=== PATIENT | female | born 1995 | race Two or more races ===

== ENCOUNTER 2016-09-13 13:44 | Emergency (ER) | payer BC ==
--- NOTE | 2016-09-13 15:07 | EDM.PDOC ---
ED HPI GENERAL MEDICAL PROBLEM - General Stated Complaint: VIGINAL DISCHARGE/BLEEDING Time Seen by Provider: 09/13/16 14:15 Source of Information: Reports: Patient History Limitations: Reports: No limitations - History of Present Illness INITIAL COMMENTS - FREE TEXT/NARRATIVE: HISTORY AND PHYSICAL: History of present illness: The patient is a 21-year-old female presenting to the emergency department with very minimal vaginal bleeding and discharge that started last night. She is approximately 7 or 8 weeks with her third . She is and had a first trimester miscarriage about a year ago. She states this is about how her miscarriage started last time and she is very nervous and anxious. She has had minimal suprapubic cramping pain. She denies pain with urination. No fevers or chills. She has not established OB care here yet. Her other pregnancies were out of state. Review of systems: As per history of present illness and below otherwise all systems reviewed and negative. Past medical history: As per history of present illness and as reviewed below otherwise noncontributory. Surgical history: As per history of present illness and as reviewed below otherwise noncontributory. Social history: No reported history of drug or alcohol abuse. Family history: As per history of present illness and as reviewed below otherwise noncontributory. Physical exam: HEENT: Atraumatic, pupils reactive. Lungs: Clear to auscultation, breath sounds equal bilaterally, chest nontender. Heart: S1S2, regular, negative for clicks, rubs, or JVD. Abdomen: Soft, nondistended, nontender. Negative for masses or hepatosplenomegaly. Negative for costovertebral tenderness. Pelvis: Stable nontender. Genitourinary: Deferred. Rectal: Deferred. Extremities: Atraumatic, negative for cords or calf pain. Neurovascular unremarkable. Neuro: Awake, alert, oriented. Cranial nerves II through XII unremarkable. Cerebellum unremarkable. Motor and sensory unremarkable throughout. Exam nonfocal. Diagnostics: cbc, cmp, ua, 1st tri ultrasound, ABO/RH Impression: Threatened AB Plan: Ultrasound showed a live intrauterine . Patient's Rh was positive so no rhogam was given. The patient has not established care at this time but I did give her numbers for [facility] in the women's health office at our facility. She will call tomorrow to make an appointment for Saturday or Saturday for reevaluation. At this time I do not think he needs emergent testing of her hCG again in 48 hours. She was instructed to have pelvic rest and return to the ED for any significant bleeding or pain. Definitive disposition and diagnosis as appropriate pending reevaluation and review of above. Abdominal Pain Score (Numeric/FACES): 5 - Related Data Allergies Allergy/AdvReac Type Severity Reaction Status Date / Time No Known Allergies Allergy Verified 09/13/16 14:11 Home Meds: Home Meds . [No Known Home Meds] 09/13/16 [History] Social & Family History - Tobacco Use Smoking Status *Q: Never Smoker Second Hand Smoke Exposure: No - Caffeine Use Caffeine Use: Reports: Coffee - Recreational Drug Use Recreational Drug Use: No ED ROS GENERAL - Review of Systems Review Of Systems: ROS reveals no pertinent complaints other than HPI. ED EXAM, GENERAL - Physical Exam Exam: See Below (See HPI) Course - Vital Signs Last Recorded V/S: Last Vital Signs Temp 36.7 C 09/13/16 14:11 Pulse 99 09/13/16 14:11 Resp 18 09/13/16 14:11 BP 142/77 H 09/13/16 14:11 Pulse Ox 100 09/13/16 14:11 - Orders/Labs/Meds Labs: Laboratory Tests 09/13/16 09/13/16 09/13/16 Range/Units 14:46 14:46 14:46 WBC 12.55 H (4.0-11.0) K/uL RBC 4.75 (4.30-5.90) M/uL Hgb 13.6 (12.0-16.0) g/dL Hct 39.9 (36.0-46.0) % MCV 84.0 (80.0-98.0) fL MCH 28.6 (27.0-32.0) pg MCHC 34.1 (31.0-37.0) g/dL RDW Std Deviation 42.7 (28.0-62.0) fl RDW Coeff of Swathi 14 (11.0-15.0) % Plt Count 304 (150-400) K/uL MPV 9.60 (7.40-12.00) fL Neut % (Auto) 73.6 (48.0-80.0) % Lymph % (Auto) 17.8 (16.0-40.0) % [place] % (Auto) 4.7 (0.0-15.0) % Eos % (Auto) 3.7 (0.0-7.0) % Baso % (Auto) 0.2 (0.0-1.5) % Neut # (Auto) 9.2 H (1.4-5.7) K/uL Lymph # (Auto) 2.2 (0.6-2.4) K/uL [place] # (Auto) 0.6 (0.0-0.8) K/uL Eos # (Auto) 0.5 (0.0-0.7) K/uL Baso # (Auto) 0.0 (0.0-0.1) K/uL Nucleated RBC % 0.0 /100WBC Nucleated RBCs # 0 K/uL Sodium 138 (136-146) mmol/L Potassium 3.8 (3.5-5.1) mmol/L Chloride 105 (98-110) mmol/L Carbon Dioxide 20 L (21-31) mmol/L BUN 10 (6.0-23.0) mg/dL Creatinine 0.8 (0.6-1.5) mg/dL Est Cr Clr Drug Dosing TNP Estimated GFR (MDRD) > 60.0 ml/min Glucose 86 (60-110) mg/dL Calcium 9.4 (8.8-10.8) mg/dL Total Bilirubin 0.5 (0.1-1.5) mg/dL AST 17 (5-40) IU/L ALT 15 (8-54) IU/L Alkaline Phosphatase 52 (40-150) Total Protein 8.1 H (6.0-8.0) g/dL Albumin 4.6 (3.5-5.0) g/dL Globulin 3.5 (2.0-3.5) g/dL Albumin/Globulin Ratio 1.3 (1.3-2.8) HCG, Quant 73663.6 mIU/mL Urine Color Urine Appearance Urine pH (5.0-8.0) Ur Specific [place] (1.001-1.035) Urine Protein (NEGATIVE) mg/dL Urine Glucose (UA) (NEGATIVE) mg/dL Urine Ketones (NEGATIVE) mg/dL Urine Occult Blood (NEGATIVE) Urine Nitrite (NEGATIVE) Urine Bilirubin (NEGATIVE) Urine Urobilinogen (<2.0) EU/dL Ur Leukocyte Esterase (NEGATIVE) Urine RBC (0-2/HPF) Urine WBC (0-5/HPF) Ur Epithelial Cells (NONE-FEW) Urine Bacteria (NEGATIVE) Blood Type O POSITIVE 09/13/16 Range/Units 14:50 WBC (4.0-11.0) K/uL RBC (4.30-5.90) M/uL Hgb (12.0-16.0) g/dL Hct (36.0-46.0) % MCV (80.0-98.0) fL MCH (27.0-32.0) pg MCHC (31.0-37.0) g/dL RDW Std Deviation (28.0-62.0) fl RDW Coeff of Swathi (11.0-15.0) % Plt Count (150-400) K/uL MPV (7.40-12.00) fL Neut % (Auto) (48.0-80.0) % Lymph % (Auto) (16.0-40.0) % [place] % (Auto) (0.0-15.0) % Eos % (Auto) (0.0-7.0) % Baso % (Auto) (0.0-1.5) % Neut # (Auto) (1.4-5.7) K/uL Lymph # (Auto) (0.6-2.4) K/uL [place] # (Auto) (0.0-0.8) K/uL Eos # (Auto) (0.0-0.7) K/uL Baso # (Auto) (0.0-0.1) K/uL Nucleated RBC % /100WBC Nucleated RBCs # K/uL Sodium (136-146) mmol/L Potassium (3.5-5.1) mmol/L Chloride (98-110) mmol/L Carbon Dioxide (21-31) mmol/L BUN (6.0-23.0) mg/dL Creatinine (0.6-1.5) mg/dL Est Cr Clr Drug Dosing Estimated GFR (MDRD) ml/min Glucose (60-110) mg/dL Calcium (8.8-10.8) mg/dL Total Bilirubin (0.1-1.5) mg/dL AST (5-40) IU/L ALT (8-54) IU/L Alkaline Phosphatase (40-150) Total Protein (6.0-8.0) g/dL Albumin (3.5-5.0) g/dL Globulin (2.0-3.5) g/dL Albumin/Globulin Ratio (1.3-2.8) HCG, Quant mIU/mL Urine Color YELLOW Urine Appearance SLT CLOUDY Urine pH 6.5 (5.0-8.0) Ur Specific [place] <= 1.005 (1.001-1.035) Urine Protein NEGATIVE (NEGATIVE) mg/dL Urine Glucose (UA) NEGATIVE (NEGATIVE) mg/dL Urine Ketones NEGATIVE (NEGATIVE) mg/dL Urine Occult Blood LARGE H (NEGATIVE) Urine Nitrite NEGATIVE (NEGATIVE) Urine Bilirubin NEGATIVE (NEGATIVE) Urine Urobilinogen 0.2 (<2.0) EU/dL Ur Leukocyte Esterase SMALL (NEGATIVE) Urine RBC 0-3 (0-2/HPF) Urine WBC 3-5 (0-5/HPF) Ur Epithelial Cells MODERATE (NONE-FEW) Urine Bacteria FEW (NEGATIVE) Blood Type Departure - Departure Time of Disposition: 16:05 Disposition: Home, Self-Care 01 Condition: good Clinical Impression: Threatened Referrals: PCP,None [Primary Care Provider] - Additional Instructions: The following information is given to patients seen in the emergency department who are being discharged to home. This information is to outline your options for follow-up care. We provide all patients seen in our emergency department with a follow-up referral. The need for follow-up, as well as the timing and circumstances, are variable depending upon the specifics of your emergency department visit. If you don't have a primary care physician on staff, we will provide you with a referral. We always advise you to contact your personal physician following an emergency department visit to inform them of the circumstance of the visit and for follow-up with them and/or the need for any referrals to a consulting specialist. The emergency department will also refer you to a specialist when appropriate. This referral assures that you have the opportunity for follow-up care with a specialist. All of these measure are taken in an effort to provide you with optimal care, which includes your follow-up. Under all circumstances we always encourage you to contact your private physician who remains a resource for coordinating your care. When calling for follow-up care, please make the office aware that this follow-up is from your recent emergency room visit. If for any reason you are refused follow-up, please contact the [facility] Emergency Department at and asked to speak to the emergency department charge nurse. [facility] [address] [place] [id number] [facility] Primary Care - Women's Health [address] [place] [id number] Please avoid any tampons douching or intercourse until you're cleared by her doctor. Return to the ED for any significant bleeding as we discussed or any severe change in your symptoms.
[2016-09-13 15:20] LABS: CHLORIDE,CL 105 mmol/L (98-110); SODIUM,NA 138 mmol/L (136-146)
--- NOTE | 2016-09-13 15:37 | US ---
EXAMINATION: Transvaginal pelvic ultrasound HISTORY: Bleeding COMPARISON: None TECHNIQUE: Grayscale, color Doppler and spectral Doppler images obtained transvaginally. FINDINGS: The uterus appears normal in size and contour. There is a gestational sac noted within the fundus of the uterus. A yolk sac and pole is noted. The heart rate is 138 bpm. The mean sac diameter measures 2.1 cm and the crown-rump length measures 0.9 cm. This gives an estimated ges tational age at 6 weeks and 6 days with an estimated date of delivery at 05/03/2017. Both the left and right ovaries are normal in size, contour and echogenicity demonstrating normal co makayla and spectral Doppler flow. Left ovary is however not well characterized. No adnexal masses. IMPRESSION: 1. Single live intrauterine .
== END 2016-09-13 16:56 | disposition home or self-care (01) ==
LOC: MW.ED 13:44 → EDBD 13:44 → MW.ED 16:56
DX: O20.0 Threatened abortion (principal)
CPT/HCPCS: 36415; 76801; 76801-26; 80053; 81001; 84702; 85025; 86900; 86901; 99283; 99284-25

== ENCOUNTER 2017-04-17 11:39 | Inpatient (IN) | payer OTHER ==
[2017-04-17 12:57] LABS: CHLORIDE,CL 112 mmol/L (98-110); SODIUM,NA 138 mmol/L (136-146)
[2017-04-17] MEDS ORDERED: Sodium Chloride 0.9% 10 ML Syringe FLUSH PRN ×2 (15:27→20:31)
[2017-04-17] MEDS ORDERED: Sodium Chloride 0.9% 2.5 ML Syringe FLUSH PRN ×2 (15:27→20:31)
[2017-04-17] MEDS ORDERED: Oxytocin/0.9 % Sodium Chloride 30 UNIT/500 ML BAG IV SCH (15:30)
[2017-04-17] MEDS ORDERED: Citric Acid/Sodium Citrate Solution 30 ML Cup PO SCH (15:30)
[2017-04-17] MEDS: Lactated Ringers 1,000 ML IV SCH ×2 (15:55→16:28)
[2017-04-17] MEDS ORDERED: Morphine PF 10 MG/10 ML SDV IV ONE (15:59)
[2017-04-17] MEDS ORDERED: Ondansetron 4 MG/2 ML SDV IVPUSH ONE (15:59)
[2017-04-17] MEDS ORDERED: ePHEDrine 50 MG/ML SDV IV ONE (15:59)
[2017-04-17] MEDS ORDERED: Octyl 2-Cyanoacrylate 1 Tube TOP ONE (15:59)
[2017-04-17] MEDS ORDERED: Oxytocin 10 Units/1 ML SDV IV ONE (15:59)
--- NOTE | 2017-04-17 16:15 | PCM.PREANE ---
Preanesthetic Assessment - Anesthesia/Transfusion/Family Hx Anesthesia History: Prior Anesthesia Without Reaction Family History of Anesthesia Reaction: No Intubation History: Unknown - Review of Systems General: No Symptoms Pulmonary: No Symptoms Cardiovascular: No Symptoms Gastrointestinal: No Symptoms Neurological: No Symptoms Other: Reports: None - Physical Assessment ASA Class: 2E Mental Status: Alert & Oriented x3 Airway Class: Mallampati = 2 Dentition: Reports: Normal Dentition Thyro-Mental Finger Breadths: 3 Mouth Opening Finger Breadths: 3 ROM/Head Extension: Full Lungs: Clear to Auscultation, Normal Respiratory Effort Cardiovascular: Regular Rate, Regular Rhythm - Allergies Allergies/Adverse Reactions: Allergies Allergy/AdvReac Type Severity Reaction Status Date / Time No Known Allergies Allergy Verified 09/13/16 14:11 - Blood Blood Available: No - Anesthesia Plan Pre-Op Medication Ordered: None - Acknowledgements Anesthesia Type Planned: Spinal Pt an Appropriate Candidate for the Planned Anesthesia: Yes Alternatives and Risks of Anesthesia Discussed w Pt/Guardian: Yes Pt/Guardian Understands and Agrees with Anesthesia Plan: Yes PreAnesthesia Questionnaire - Past Surgical History Female Surgical History: Reports: Section (emergency C/S due to eclampsia with temporaty loss of vision in one eye) - SUBSTANCE USE Smoking Status *Q: Never Smoker Second Hand Smoke Exposure: No Recreational Drug Use History: No - HOME MEDS Home Medications: Home Meds . [No Known Home Meds] 09/13/16 [History] - CURRENT (IN HOUSE) MEDS Current Meds: Current Medications Lactated Ringer's (Ringers, Lactated) 1,000 mls @ 125 mls/hr IV ASDIRECTED RIKY Sodium Chloride (Saline Flush) 10 ml FLUSH ASDIRECTED PRN PRN Reason: Keep Vein Open Sodium Chloride (Saline Flush) 2.5 ml FLUSH ASDIRECTED PRN PRN Reason: Keep Vein Open Discontinued Medications Morphine Sulfate (Duramorph Pf) Confirm Administered Dose 10 mg .ROUTE .STK-MED ONE Stop: 04/17/17 16:00 Ondansetron HCl (Zofran) Confirm Administered Dose 4 mg .ROUTE .STK-MED ONE Stop: 04/17/17 16:00 Oxytocin (Pitocin) Confirm Administered Dose 20 unit .ROUTE .STK-MED ONE Stop: 04/17/17 16:00
[2017-04-17] MEDS ORDERED: fentaNYL 100 MCG/2 ML SDV IVPUSH PRN (17:30)
[2017-04-17] MEDS ORDERED: Ibuprofen 800 MG Tab PO PRN (17:34)
[2017-04-17] MEDS ORDERED: Bisacodyl 10 MG Supp RECTAL PRN (17:34)
[2017-04-17] MEDS ORDERED: Acetaminophen/oxyCODONE 325-5 MG Tab PO PRN ×2 (17:34)
[2017-04-17] MEDS ORDERED: diphenhydrAMINE 50 MG/ML SDV IVPUSH PRN ×2 (17:34→20:31)
[2017-04-17] MEDS ORDERED: Ondansetron 4 MG/2 ML SDV IV PRN (17:34)
[2017-04-17] MEDS ORDERED: Lanolin 100% Cream 7 GM Tube TOP PRN (17:34)
--- NOTE | 2017-04-17 17:39 | PCM.OPNOTE ---
- General Post-Op/Procedure Note Date of Surgery/Procedure: 04/17/17 Operative Procedure(s): Repeat C/section Pre Op Diagnosis: PIH [id number] wks previous C/Section Post-Op Diagnosis: Same Anesthesia Technique: Spinal Primary Surgeon: Alberto Prince Snack Bar Attendant: kristi DIAMOND in mLs: 700 Complications: accedental intery to the bladder Condition: Good
[2017-04-17] MEDS ORDERED: Lactated Ringers 1,000 ML IV SCH ×2 (17:45→20:45)
[2017-04-17] MEDS ORDERED: Ketorolac 30 MG/ML SDV IVPUSH SCH (17:45)
--- NOTE | 2017-04-17 18:37 | PCM.POSTAN ---
POST ANESTHESIA ASSESSMENT - MENTAL STATUS Mental Status: Alert, Oriented - RESPIRATORY Respiratory Status: Respiratory Rate WNL, Airway Patent, O2 Saturation Stable - CARDIOVASCULAR CV Status: Pulse Rate WNL, Blood Pressure Stable - GASTROINTESTINAL GI Status: No Symptoms - POST OP HYDRATION Hydration Status: Adequate & Stable
[2017-04-17] MEDS ORDERED: Naloxone 0.4 MG/ML Syringe IVPUSH PRN (20:31)
[2017-04-17] MEDS ORDERED: Nalbuphine 10 MG/1 ML Vial IVPUSH PRN (20:31)
--- NOTE | 2017-04-17 20:41 | PCM.SN ---
- Free Text/Narrative Note: Please see patients other medical record for all anesthesia related charting.
--- NOTE | 2017-04-17 21:05 | OR ---
SURGEON: Alberto Prince MD DATE OF PROCEDURE: PREOPERATIVE DIAGNOSES: 1. Intrauterine , 37 weeks plus 3. 2. -induced hypertension. 3. Previous section. POSTOPERATIVE DIAGNOSES: 1. Intrauterine , 37 weeks plus 3. 2. -induced hypertension. 3. Previous section. OPERATION PERFORMED: Repeat low-transverse section. FRAUD INVESTIGATOR: Nalini Mohan CNM. ANESTHESIA: Spinal, Jameel Dallas and Dr. Juares. ESTIMATED BLOOD LOSS: 700 mL. COMPLICATIONS: Accidental entry to the bladder during the dissection of the lower uterine segment due to dense adhesion between her bladder and the lower uterine segment and the anterior abdominal wall from her previous section. INDICATIONS: This patient is 37 plus 3. She has had previous section. She was scheduled for elective section at 39 weeks. However, she presented today to Labor and Delivery with elevated blood pressure. Her blood pressure is ranging between 170/110 and 160/105. The patient was sent to Labor and Delivery and monitored for a while. Her blood pressure has continued to be up, and there was swelling of the leg and abdominal edema. A decision was made to repeat the section because of the PIH situation. The patient previously had section with her first child with PIH problem too. PROCEDURE IN DETAIL: The patient was brought to the OR, properly identified, and after adequate level of general anesthesia, the patient was prepped and draped in a sterile fashion as usual. A low-transverse Pfannenstiel skin incision through the old scar done. Brian's fascia and rectus fascia were opened in the direction of the incision. The 2 recti muscles were . Peritoneal cavity was entered. There was a dense adhesion between the bladder, anterior abdominal wall, and lower uterine segment. During the dissection of the bladder from the lower uterine segment, accidental entry happened to the bladder. It was about 1.5 cm, and it was recognized immediately and repaired after delivering the baby. Then, a low transverse incision in the lower uterine segment was done, extended manually with hand. The fetus was delivered. It was in the vertex position. The fetus cried immediately. score reported to be 8 and 9. The weight was not available. The placenta was delivered spontaneous, complete, and intact without any problem. A repair of the lower uterine segment was done with 2-0 Vicryl continuous interlocking in 2 layers and at this time, attention was paid to the hole in the bladder, and the edge of the bladder hole was identified with a Hilton and using 3-0 Vicryl continuous interlocking, the bladder hole was repaired in 3 layers, 2 in the muscle of the bladder and the last one in the peritoneum. Once this was done, then re-peritonealization of the lower uterine segment was done with 2-0 Vicryl continuous, and then the peritoneal cavity evacuated completely from all blood and blood clot and closed with 3-0 Vicryl continuous. The rectus fascia was closed with #1 PDS double-strand continuous and the Brian's fascia with 3-0 Vicryl continuous. The skin was closed with 3- 0 Vicryl utilizing Kingsley needle and Dermabond. Instrument and sponge count was correct. The patient tolerated the procedure well and went to the recovery room in stable general condition. JESSIKA LONG /[id number]
[2017-04-17] MEDS: Docusate Sodium 100 MG Cap PO SCH (21:18)
[2017-04-17] MEDS: Ketorolac 30 MG/ML SDV IVPUSH SCH (21:19)
[2017-04-18] MEDS ORDERED: Furosemide 20 MG/2 ML VIAL IVPUSH ONE (02:53)
[2017-04-18] MEDS: Ketorolac 30 MG/ML SDV IVPUSH SCH ×4 (03:02→21:07)
--- NOTE | 2017-04-18 08:44 | PCM.PNPP ---
- General Info Date of Service: 04/18/17 Functional Status: Reports: Pain Controlled, Tolerating Diet, Urinating (spivey in), Incentive Spirometry - Review of Systems General: Reports: No Symptoms HEENT: Reports: No Symptoms Pulmonary: Reports: No Symptoms Cardiovascular: Reports: No Symptoms Gastrointestinal: Reports: No Symptoms Genitourinary: Reports: No Symptoms Musculoskeletal: Reports: No Symptoms Skin: Reports: No Symptoms Neurological: Reports: No Symptoms Psychiatric: Reports: No Symptoms - General Info Date of Service: 04/18/17 - Patient Data Vital Signs - Most Recent: Last Vital Signs Temp 36.8 C 04/17/17 18:45 Pulse 83 04/18/17 06:17 Resp 16 04/18/17 06:17 BP 133/85 04/18/17 04:04 Pulse Ox 94 L 04/18/17 06:17 Weight - Most Recent: 83.915 kg I&O - Last 24 Hours: Intake & Output 04/17/17 04/18/17 04/18/17 22:59 06:59 14:59 Intake Total 2933 Output Total 1880 Balance 1053 Lab Results - Last 24 Hours: Laboratory Results - last 24 hr 04/17/17 04/17/17 04/17/17 Range/Units 11:50 11:50 12:10 WBC 9.40 (4.0-11.0) K/uL RBC 4.40 (4.30-5.90) M/uL Hgb 12.4 (12.0-16.0) g/dL Hct 37.8 (36.0-46.0) % MCV 85.9 (80.0-98.0) fL MCH 28.2 (27.0-32.0) pg MCHC 32.8 (31.0-37.0) g/dL RDW Std Deviation 50.4 (28.0-62.0) fl RDW Coeff of Swathi 16 H (11.0-15.0) % Plt Count 227 (150-400) K/uL MPV 11.10 (7.40-12.00) fL Neut % (Auto) 72.0 (48.0-80.0) % Lymph % (Auto) 18.8 (16.0-40.0) % Mcduffie % (Auto) 6.8 (0.0-15.0) % Eos % (Auto) 2.3 (0.0-7.0) % Baso % (Auto) 0.1 (0.0-1.5) % Neut # (Auto) 6.8 H (1.4-5.7) K/uL Lymph # (Auto) 1.8 (0.6-2.4) K/uL Mcduffie # (Auto) 0.6 (0.0-0.8) K/uL Eos # (Auto) 0.2 (0.0-0.7) K/uL Baso # (Auto) 0.0 (0.0-0.1) K/uL Nucleated RBC % 0.0 /100WBC Nucleated RBCs # 0 K/uL Sodium (136-146) mmol/L Potassium (3.5-5.1) mmol/L Chloride (98-110) mmol/L Carbon Dioxide (21-31) mmol/L BUN (6.0-23.0) mg/dL Creatinine (0.6-1.5) mg/dL Est Cr Clr Drug Dosing mL/min Estimated GFR (MDRD) ml/min Glucose (60-110) mg/dL Uric Acid (2.1-6.2) mg/dL Calcium (8.8-10.8) mg/dL Total Bilirubin (0.1-1.5) mg/dL AST (5-40) IU/L ALT (8-54) IU/L Alkaline Phosphatase (40-150) Total Protein (6.0-8.0) g/dL Albumin (3.5-5.0) g/dL Globulin (2.0-3.5) g/dL Albumin/Globulin Ratio (1.3-2.8) Urine Color YELLOW Urine Appearance SLT CLOUDY Urine pH 6.5 (5.0-8.0) Ur Specific [place] 1.015 (1.001-1.035) Urine Protein 30 (NEGATIVE) mg/dL Urine Glucose (UA) NEGATIVE (NEGATIVE) mg/dL Urine Ketones NEGATIVE (NEGATIVE) mg/dL Urine Occult Blood TRACE-INTACT (NEGATIVE) Urine Nitrite NEGATIVE (NEGATIVE) Urine Bilirubin NEGATIVE (NEGATIVE) Urine Urobilinogen 0.2 (<2.0) EU/dL Ur Leukocyte Esterase NEGATIVE (NEGATIVE) Urine RBC 0-1 (0-2/HPF) Urine WBC 0-2 (0-5/HPF) Ur Epithelial Cells MANY (NONE-FEW) Urine Bacteria FEW (NEGATIVE) Ur Random Creatinine 122.8 mg/dL U Random Total Protein 97.2 mg/dL Protein/Creatinin Ratio 0.8 Blood Type Antibody Screen 04/17/17 04/17/17 04/18/17 Range/Units 12:10 12:10 05:19 WBC (4.0-11.0) K/uL RBC (4.30-5.90) M/uL Hgb 10.3 L (12.0-16.0) g/dL Hct 31.4 L (36.0-46.0) % MCV (80.0-98.0) fL MCH (27.0-32.0) pg MCHC (31.0-37.0) g/dL RDW Std Deviation (28.0-62.0) fl RDW Coeff of Swathi (11.0-15.0) % Plt Count (150-400) K/uL MPV (7.40-12.00) fL Neut % (Auto) (48.0-80.0) % Lymph % (Auto) (16.0-40.0) % Mcduffie % (Auto) (0.0-15.0) % Eos % (Auto) (0.0-7.0) % Baso % (Auto) (0.0-1.5) % Neut # (Auto) (1.4-5.7) K/uL Lymph # (Auto) (0.6-2.4) K/uL Mcduffie # (Auto) (0.0-0.8) K/uL Eos # (Auto) (0.0-0.7) K/uL Baso # (Auto) (0.0-0.1) K/uL Nucleated RBC % /100WBC Nucleated RBCs # K/uL Sodium 138 (136-146) mmol/L Potassium 3.9 (3.5-5.1) mmol/L Chloride 112 H (98-110) mmol/L Carbon Dioxide 16 L (21-31) mmol/L BUN 8 (6.0-23.0) mg/dL Creatinine 0.7 (0.6-1.5) mg/dL Est Cr Clr Drug Dosing 134.01 mL/min Estimated GFR (MDRD) > 60.0 ml/min Glucose 98 (60-110) mg/dL Uric Acid 7.6 H (2.1-6.2) mg/dL Calcium 9.0 (8.8-10.8) mg/dL Total Bilirubin 0.3 (0.1-1.5) mg/dL AST 24 (5-40) IU/L ALT 15 (8-54) IU/L Alkaline Phosphatase 175 H (40-150) Total Protein 6.1 (6.0-8.0) g/dL Albumin 3.3 L (3.5-5.0) g/dL Globulin 2.8 (2.0-3.5) g/dL Albumin/Globulin Ratio 1.2 L (1.3-2.8) Urine Color Urine Appearance Urine pH (5.0-8.0) Ur Specific [place] (1.001-1.035) Urine Protein (NEGATIVE) mg/dL Urine Glucose (UA) (NEGATIVE) mg/dL Urine Ketones (NEGATIVE) mg/dL Urine Occult Blood (NEGATIVE) Urine Nitrite (NEGATIVE) Urine Bilirubin (NEGATIVE) Urine Urobilinogen (<2.0) EU/dL Ur Leukocyte Esterase (NEGATIVE) Urine RBC (0-2/HPF) Urine WBC (0-5/HPF) Ur Epithelial Cells (NONE-FEW) Urine Bacteria (NEGATIVE) Ur Random Creatinine mg/dL U Random Total Protein mg/dL Protein/Creatinin Ratio Blood Type O POSITIVE Antibody Screen NEGATIVE Med Orders - Current: Current Medications Bisacodyl (Dulcolax) 10 mg RECTAL .ONCE PRN PRN Reason: Constipation Citric Acid/Sodium Citrate (Bicitra Solution) 30 ml PO .ONCE [facility] Last Admin: 04/17/17 16:34 Dose: 30 ml Diphenhydramine HCl (Benadryl) 25 mg IVPUSH Q6H PRN PRN Reason: Itching or Nausea Diphenhydramine HCl (Benadryl) 25 mg IVPUSH Q4H PRN PRN Reason: Itching Stop: 04/18/17 20:32 Docusate Sodium (Colace) 100 mg PO BID [facility] Last Admin: 04/17/17 21:18 Dose: 100 mg Emollient Ointment (Lansinoh Hpa) 0 gm TOP ASDIRECTED PRN PRN Reason: Sore Nipples Fentanyl (Sublimaze) 50 mcg IVPUSH Q45M PRN PRN Reason: Pain (severe 7-10) Stop: 04/18/17 17:30 Oxytocin/Sodium Chloride (Oxytocin 30 Unit/500 Ml-Ns) 30 unit in 500 mls @ 250 mls/hr IV TITRATE [facility] Lactated Ringer's (Ringers, Lactated) 1,000 mls @ 500 mls/hr IV .BOLUS [facility] Last Admin: 04/17/17 16:28 Dose: 500 mls/hr Lactated Ringer's (Ringers, Lactated) 1,000 mls @ 125 mls/hr IV ASDIRECTED [facility] Last Admin: 04/18/17 01:51 Dose: 125 mls/hr Lactated Ringer's (Ringers, Lactated) 1,000 mls @ 125 mls/hr IV ASDIRECTED [facility] Ibuprofen (Motrin) 800 mg PO Q8H PRN PRN Reason: mild pain or fever Ketorolac Tromethamine (Toradol) 30 mg IVPUSH Q6H [facility] Stop: 04/18/17 21:01 Last Admin: 04/18/17 03:02 Dose: 30 mg Nalbuphine HCl (Nubain) 5 mg IVPUSH Q3H PRN PRN Reason: Pruritis Stop: 04/18/17 20:32 Naloxone HCl (Narcan) 0.1 mg IVPUSH ONETIME PRN PRN Reason: Respiratory Depression Stop: 04/18/17 20:32 Ondansetron HCl (Zofran) 4 mg IV Q4H PRN PRN Reason: Nausea/Vomiting Oxycodone/Acetaminophen (Percocet 325-5 Mg) 1 tab PO Q4H PRN PRN Reason: Pain (moderate 4-6) Oxycodone/Acetaminophen (Percocet 325-5 Mg) 2 tab PO Q4H PRN PRN Reason: Pain (moderate 4-6) Sodium Chloride (Saline Flush) 10 ml FLUSH ASDIRECTED PRN PRN Reason: Keep Vein Open Sodium Chloride (Saline Flush) 2.5 ml FLUSH ASDIRECTED PRN PRN Reason: Keep Vein Open Sodium Chloride (Saline Flush) 10 ml FLUSH ASDIRECTED PRN PRN Reason: Keep Vein Open Sodium Chloride (Saline Flush) 2.5 ml FLUSH ASDIRECTED PRN PRN Reason: Keep Vein Open Discontinued Medications Furosemide (Lasix) 20 mg IVPUSH ONETIME ONE Stop: 04/18/17 02:54 Last Admin: 04/18/17 03:20 Dose: 20 mg Ketorolac Tromethamine (Toradol) 30 mg IVPUSH Q6H [facility] Stop: 04/18/17 17:46 - Interaction Infant Disposition, : [place] in Room with Family Interaction: Holding Infant Feeding: Breastfed ; Nursed Well Support Person: - Recovery Exam Fundal Tone: Firm Fundal Level: 2 Fingerbreadths Below Umbilicus Fundal Placement: Midline Lochia Amount: Small Lochia Color: Rubra/Red Episiotomy/Laceration: None - Exam General: Alert, Oriented, Cooperative, No Acute Distress Lungs: Normal Respiratory Effort GI/Abdominal Exam: Soft, Non-Tender Extremities: Normal Range of Motion, Non-Tender, No Pedal Edema, Normal Capillary Refill Skin: Warm, Dry, Intact Wound/Incisions: Healing Well, Dressing Dry and Intact Neurological: No New Focal Deficit, Normal Speech, Normal Tone Psy/Mental Status: Alert, Normal Affect, Normal Mood - Problem List & Annotations (1) delivery delivered SNOMED Code(s): 713585916 Code(s): O82 - ENCOUNTER FOR DELIVERY WITHOUT INDICATION Status: Acute Priority: High Current Visit: Yes - Problem List Review Problem List Initiated/Reviewed/Updated: Yes - My Orders Last 24 Hours: My Active Orders 04/17/17 11:28 CULTURE GROUP B STREP [RM] Routine - Assessment Assessment:: A: VSS, AF, Incision dressing dry and intact. Spivey cath in urine clear, Stable - Plan Plan:: P: continue pp plan of care. Dr Prince updated on pt status
[2017-04-18] MEDS: Docusate Sodium 100 MG Cap PO SCH ×2 (09:30→22:08)
[2017-04-18] MEDS: Lactated Ringers 1,000 ML IV SCH (09:36)
[2017-04-19] MEDS: Docusate Sodium 100 MG Cap PO SCH (08:14)
--- NOTE | 2017-04-19 08:27 | PCM.DCSUM1 ---
Discharge Summary - Hospital Course Free Text/Narrative:: Discharge home with infant, Follow up in 1 weeks to have spivey catheter removed and incision checked. - Discharge Data Discharge Date: 04/19/17 Discharge Disposition: Home, Self-Care 01 Condition: Good - Discharge Diagnosis/Problem(s) (1) delivery delivered SNOMED Code(s): 265219221 ICD Code: O82 - ENCOUNTER FOR DELIVERY WITHOUT INDICATION Status: Acute Priority: High Current Visit: Yes - Patient Summary/Data Operative Procedure(s) Performed: Repeat C/section - Patient Instructions Diet: Usual Diet as Tolerated Activity: As Tolerated, No Lifting Over 10 Pounds, No Strenuous Activities, Rest and Relax Today Driving: Do Not Drive Showering/Bathing: May Shower, No Tub Bathing/Swimming (for one week) Wound/Incision Care: Keep Operative Site/Wound Site Clean and Dry Notify Provider of: Fever, Increased Pain, Swelling and Redness, Drainage, Nausea and/or Vomiting Other/Special Instructions: Discharge home with infant, Follow up in 1 weeks to have spivey catheter removed and incision checked. - Discharge Plan Home Medications: Home Meds . [No Known Home Meds] 09/13/16 [History] Referrals: [facility] [Outside] Nalini Mohan CNM [Primary Care Provider] - (1 week- April 26 @ 8:30am w/ Nalini Mohan 6 week- May 30 @ 10:45am w/ Nalini Mohan ) - General Info Date of Service: 04/19/17 Functional Status: Reports: Pain Controlled, Tolerating Diet, Ambulating, Incentive Spirometry, Other (spivey catheter will remain in for one week) - Review of Systems General: Reports: No Symptoms HEENT: Reports: No Symptoms Pulmonary: Reports: No Symptoms Cardiovascular: Reports: No Symptoms Gastrointestinal: Reports: No Symptoms Genitourinary: Reports: No Symptoms Musculoskeletal: Reports: No Symptoms Skin: Reports: No Symptoms Neurological: Reports: No Symptoms Psychiatric: Reports: No Symptoms - Patient Data Vitals - Most Recent: Last Vital Signs Temp 36.8 C 04/18/17 23:58 Pulse 83 04/18/17 23:58 Resp 14 04/18/17 23:58 BP 136/78 04/18/17 23:58 Pulse Ox 94 L 04/18/17 23:58 Weight - Most Recent: 83.915 kg I&O - Last 24 hours: Intake & Output 04/18/17 04/19/17 04/19/17 22:59 06:59 14:59 Output Total 3400 Balance -3400 Med Orders - Current: Current Medications Bisacodyl (Dulcolax) 10 mg RECTAL .ONCE PRN PRN Reason: Constipation Citric Acid/Sodium Citrate (Bicitra Solution) 30 ml PO .ONCE [facility] Last Admin: 04/17/17 16:34 Dose: 30 ml Diphenhydramine HCl (Benadryl) 25 mg IVPUSH Q6H PRN PRN Reason: Itching or Nausea Docusate Sodium (Colace) 100 mg PO BID [facility] Last Admin: 04/19/17 08:14 Dose: 100 mg Emollient Ointment (Lansinoh Hpa) 0 gm TOP ASDIRECTED PRN PRN Reason: Sore Nipples Oxytocin/Sodium Chloride (Oxytocin 30 Unit/500 Ml-Ns) 30 unit in 500 mls @ 250 mls/hr IV TITRATE [facility] Lactated Ringer's (Ringers, Lactated) 1,000 mls @ 500 mls/hr IV .BOLUS [facility] Last Infusion: 04/17/17 18:28 Dose: Infused Lactated Ringer's (Ringers, Lactated) 1,000 mls @ 125 mls/hr IV ASDIRECTED [facility] Last Admin: 04/18/17 01:51 Dose: 125 mls/hr Lactated Ringer's (Ringers, Lactated) 1,000 mls @ 125 mls/hr IV ASDIRECTED [facility] Last Admin: 04/18/17 09:37 Dose: 125 mls/hr Ibuprofen (Motrin) 800 mg PO Q8H PRN PRN Reason: mild pain or fever Last Admin: 04/19/17 08:14 Dose: 800 mg Ondansetron HCl (Zofran) 4 mg IV Q4H PRN PRN Reason: Nausea/Vomiting Oxycodone/Acetaminophen (Percocet 325-5 Mg) 1 tab PO Q4H PRN PRN Reason: Pain (moderate 4-6) Last Admin: 04/18/17 22:07 Dose: 1 tab Oxycodone/Acetaminophen (Percocet 325-5 Mg) 2 tab PO Q4H PRN PRN Reason: Pain (moderate 4-6) Sodium Chloride (Saline Flush) 10 ml FLUSH ASDIRECTED PRN PRN Reason: Keep Vein Open Sodium Chloride (Saline Flush) 2.5 ml FLUSH ASDIRECTED PRN PRN Reason: Keep Vein Open Sodium Chloride (Saline Flush) 10 ml FLUSH ASDIRECTED PRN PRN Reason: Keep Vein Open Sodium Chloride (Saline Flush) 2.5 ml FLUSH ASDIRECTED PRN PRN Reason: Keep Vein Open Discontinued Medications Diphenhydramine HCl (Benadryl) 25 mg IVPUSH Q4H PRN PRN Reason: Itching Stop: 04/18/17 20:32 Fentanyl (Sublimaze) 50 mcg IVPUSH Q45M PRN PRN Reason: Pain (severe 7-10) Stop: 04/18/17 17:30 Furosemide (Lasix) 20 mg IVPUSH ONETIME ONE Stop: 04/18/17 02:54 Last Admin: 04/18/17 03:20 Dose: 20 mg Ketorolac Tromethamine (Toradol) 30 mg IVPUSH Q6H [facility] Stop: 04/18/17 17:46 Ketorolac Tromethamine (Toradol) 30 mg IVPUSH Q6H [facility] Stop: 04/18/17 21:01 Last Admin: 04/18/17 21:07 Dose: Not Given Nalbuphine HCl (Nubain) 5 mg IVPUSH Q3H PRN PRN Reason: Pruritis Stop: 04/18/17 20:32 Naloxone HCl (Narcan) 0.1 mg IVPUSH ONETIME PRN PRN Reason: Respiratory Depression Stop: 04/18/17 20:32 - Exam General: Reports: Alert, Oriented, Cooperative, No Acute Distress Lungs: Reports: Clear to Auscultation, Normal Respiratory Effort GI/Abdominal Exam: Soft, Non-Tender (Female) Exam: Vaginal Bleeding Rectal (Female) Exam: Deferred Back Exam: Reports: Full Range of Motion Extremities: Normal Range of Motion, Non-Tender, No Pedal Edema Skin: Reports: Warm, Dry, Intact Wound/Incisions: Reports: Healing Well, No Drainage Neurological: Reports: No New Focal Deficit, Normal Gait, Normal Speech, Normal Tone Psy/Mental Status: Reports: Alert, Normal Affect, Normal Mood *Q Meaningful Use (DIS) - VTE *Q VTE Criteria *Q: - Stroke *Q Stroke Criteria *Q: - AMI *Q AMI Criteria *Q:
[2017-04-19 09:03] VITALS: BP 135/84
== END 2017-04-19 12:50 | disposition home or self-care (01) | DRG 765 ==
LOC: MW.OBCHECK 11:39 → MW.OB 11:39 → MW.OBCHECK 15:27 → MW.OB 15:27
PROVIDERS: ADMIT Obstetrics & Gynecology; ATTEND Obstetrics & Gynecology
PROC: 10D00Z1 Extraction of Products of Conception, Low, Open Approach (ICD-10-PCS; principal; 2017-04-17)
PROC: 0TQB0ZZ Repair Bladder, Open Approach (ICD-10-PCS; 2017-04-17)
DX: O13.4 Gestational [pregnancy-induced] hypertension without significant proteinuria, complicating childbirth (principal); N99.71 Accidental puncture and laceration of a genitourinary system organ or structure during a genitourinary system procedure; Z3A.37 37 weeks gestation of pregnancy; Z37.0 Single live birth
CPT/HCPCS: 01961; 36415; 59025; 80053; 81001; 82570; 84156; 84550; 85014; 85018; 85025; 86850; 86900; 86901; 87081; A9270-GY; J1885; J2270; J2405; J2590; J7120

== ENCOUNTER 2019-12-14 09:18 | Emergency (ER) | payer SELFPAY ==
[2019-12-14 09:23] VITALS: BP 137/80; PULSE 92
[2019-12-14] MEDS ORDERED: Ibuprofen 400 MG Tab PO ONE (09:35)
[2019-12-14] MEDS ORDERED: Diphtheria,Pertussis(Acell),Tetanus Vaccine 0.5 ML Syringe IM ONE (09:35)
[2019-12-14] MEDS ORDERED: Acetaminophen 500 MG Tab PO ONE (09:35)
--- NOTE | 2019-12-14 09:42 | EDM.PDOC ---
ED HPI GENERAL MEDICAL PROBLEM - General Chief Complaint: Bite:Animal, Insect Stated Complaint: BITTEN BY DOG L ARM Time Seen by Provider: 12/14/19 09:21 Source of Information: Reports: Patient History Limitations: Reports: No Limitations - History of Present Illness INITIAL COMMENTS - FREE TEXT/NARRATIVE: 24-year-old female with a past medical history of hypertension presenting with a dog bite. Patient was visiting her friend when the friend's Palauan Mohan bit the patient on the posterior aspect of her left arm. The dog reportedly has its rabies vaccination series. The patient's tetanus immunization series is uncertain. No self treatment prior to arrival. No other complaints. 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: Psychiatric History: Reports: Anxiety - Infectious Disease History Infectious Disease History: Reports: Chicken Pox - Past Surgical History Cardiovascular Surgical History: Reports: None Female Surgical History: Reports: Section Dermatological Surgical History: Reports: None Social & Family History - Family History Family Medical History: Noncontributory Cardiac: Reports: Hypertension OBGYN: Reports: - Tobacco Use Smoking Status *Q: Never Smoker - Caffeine Use Caffeine Use: Reports: Soda Other Caffeine Use: rarely - Recreational Drug Use Recreational Drug Use: No ED ROS GENERAL - Review of Systems Review Of Systems: See Below Respiratory: Denies: Shortness of Breath Cardiovascular: Denies: Chest Pain Skin: Reports: Wound ED EXAM, ANIMAL BITE - Physical Exam Exam: See Below Text/Narrative:: Vital signs reviewed. Nursing notes reviewed. Constitutional: Awake, alert, non-distressed. Head: Normocephalic, atraumatic. Eyes: EOMI, conjunctiva normal, no discharge, no scleral icterus. Ears, Nose, Throat: External ears and nose normal, moist oral mucosa. Pulmonary: normal work of breathing, no accessory muscle use. Abdomen/GI: nondistended, Musculoskeletal: No deformities. Integumentary: Appropriate color for ethnicity, warm, dry, no pallor or jaundice, no rash. On the posterior aspect of the left upper arm, there are 2 discrete puncture wounds, one superficial abrasion, and some localized areas of erythema and mild swelling. Neurologic: Alert, answering questions appropriately, normal speech, no facial droop, moving all extremities well. Psychiatric: Appropriate mood and affect, normal thought process. Course - Vital Signs Text/Narrative:: 24-year-old female presenting with dog bites. Patient hemodynamically stable, afebrile, well-appearing, looks nontoxic. Differential diagnosis includes but is not limited to: Puncture wound, laceration, abrasion, retained teeth, etc. Patient given Tylenol, Motrin, tetanus booster. X-rays obtained of the left upper arm, showing no evidence of retained teeth or foreign bodies. Wounds were copiously irrigated. Given the nature of the injury and high bacterial load, these wounds will not be sutured closed and will be left open to heal. Bandaging was applied. Plan to discharge home with a 10-day course of Augmentin. Close primary care follow-up. [id number] Tylenol and Motrin as needed for pain. Plan: Patient is stable to discharge home with outpatient primary care follow- up. Strict emergency department return precautions were provided, patient indicated understanding. All questions were answered prior to departure. Discharged in good condition. Last Recorded V/S: Last Vital Signs Temp 36.2 C 12/14/19 09:19 Pulse 92 12/14/19 09:19 Resp 18 12/14/19 09:19 BP 137/80 12/14/19 09:19 Pulse Ox 100 12/14/19 09:19 - Orders/Labs/Meds Orders: Active Orders 24 hr Category Date Time Status Communication Order [RC] STAT Care 12/14/19 09:35 Active Vaccines to be Administered [RC] PER UNIT ROUTINE Care 12/14/19 09:35 Active Meds: Medications Discontinued Medications Generic Name Dose Route Start Last Admin Trade Name Anilq PRN Reason Stop Dose Admin Acetaminophen 1,000 mg 12/14/19 09:35 12/14/19 09:43 Tylenol Extra Strength PO 12/14/19 09:36 1,000 mg ONETIME ONE Administration Diphtheria/Tetanus/Acell Pertussis 0.5 ml 12/14/19 09:35 12/14/19 09:44 Adacel IM 12/14/19 09:36 0.5 ml .ONCE ONE Administration Ibuprofen 400 mg 12/14/19 09:35 12/14/19 09:43 Motrin PO 12/14/19 09:36 400 mg ONETIME ONE Administration Departure - Departure Time of Disposition: 10:14 Disposition: Home, Self-Care 01 Condition: Good Clinical Impression: Dog bite of arm Qualifiers: Encounter type: initial encounter Laterality: left Qualified Code(s): S41.152A - Open bite of left upper arm, initial encounter - Discharge Information *PRESCRIPTION DRUG MONITORING PROGRAM REVIEWED*: Not Applicable *COPY OF PRESCRIPTION DRUG MONITORING REPORT IN PATIENT CM: Not Applicable Prescriptions: Amoxicillin/Potassium Clav [Augmentin 875-125 Tablet] 1 each PO BID 10 Days #20 tablet Instructions: Animal Bite, Adult, [id number] Referrals: [facility] [Provider Group] - 1 Week (As needed.) Forms: ED Department Discharge Additional Instructions: Thank you for choosing the [facility] emergency department in [place] for your medical needs today. It was a pleasure caring for you. You were seen in the emergency department for dog bites. Your x-rays are normal. You are getting a tetanus immunization booster. We typically do not suture or close dog bite injuries due to the high rates of infection when this is done. It is safer to leave these wounds open to heal on their own. You were prescribed a course of antibiotics, be sure to finish the entire bottle. I recommend [id number] extra strength acetaminophen (1000 mg every 6 hours) and ibuprofen (400 mg every 6 hours) to help treat your pain. You should follow-up with a family medicine clinic or your primary medical clinic in the next 5-7 days for reevaluation to make sure that your wounds are healing properly. Please return the emergency department immediately if your symptoms worsen or if you feel worse. The following information is given to patients seen in the emergency department who are being discharged. This information is to outline your options for follow-up care. We provide all patients seen in our emergency department with a follow-up referral. The need for follow-up, as well as the timing and circumstances, are variable depending upon the specifics of your emergency department visit. If you don't have a primary care physician on staff, we will provide you with a referral. We always advise you to contact your personal physician following an emergency department visit to inform them of the circumstance of the visit and for follow-up with them and/or the need for any referrals to a consulting specialist. The emergency department will also refer you to a specialist when appropriate. This referral assures that you have the opportunity for follow-up care with a specialist. All of these measure are taken in an effort to provide you with optimal care, which includes your follow-up. Under all circumstances we always encourage you to contact your private physician who remains a resource for coordinating your care. When calling for follow-up care, please make the office aware that this follow-up is from your recent emergency room visit. If for any reason you are refused follow-up, please contact the [facility] Emergency Department at and asked to speak to the emergency department charge nurse. If you do not have a primary care physician that is caring for you, you can contact these clinics below to set up an appointment to establish care: [facility] [address] [place] [id number] [facility] [address] [place] [id number] Sepsis Event Note (ED) - Evaluation Sepsis Screening Result: No Definite Risk - Focused Exam Vital Signs: Vital Signs Temp Pulse Resp BP Pulse Ox 12/14/19 09:19 36.2 C 92 18 137/80 100 - My Orders Last 24 Hours: My Active Orders 12/14/19 09:35 Communication Order [RC] STAT Vaccines to be Administered [RC] PER UNIT ROUTINE - Assessment/Plan Last 24 Hours: My Active Orders 12/14/19 09:35 Communication Order [RC] STAT Vaccines to be Administered [RC] PER UNIT ROUTINE
--- NOTE | 2019-12-14 10:29 | CR ---
Left humerus: 2 views of the left humerus are obtained. Comparison: No previous study. No bony abnormality is appreciated. No soft tissue foreign body is seen. No soft tissue air is seen. Impression: 1. No abnormality is appreciated on 2 view left humerus study. Diagnostic code #1 Study was dictated in MDT
== END 2019-12-14 10:25 | disposition home or self-care (01) ==
LOC: MW.ED 09:18
DX: S41.152A Open bite of left upper arm, initial encounter (principal); I10 Essential (primary) hypertension; Z23 Encounter for immunization; W54.0XXA Bitten by dog, initial encounter
CPT/HCPCS: 73060; 90471; 90715; 99283; A9270; 99282